=== PATIENT | female | born 1995 | race Caucasian/White ===

== ENCOUNTER 2017-12-23 10:57 | Emergency (ER) | payer BC ==
[~2017-12-23] VITALS: Ht 170.2 cm; Wt 61.2 kg
[2017-12-23 10:57] VITALS: BP 120/79
== END 2017-12-23 11:58 | disposition home or self-care (01) ==
LOC: ER 11:00
DX: J02.0 Streptococcal pharyngitis (principal); Z91.040 Latex allergy status
CPT/HCPCS: 99283; A4606; Z7610